=== PATIENT | female | born 1955 | race Caucasian/White ===

== ENCOUNTER 2018-03-12 11:38 | Observation (INO) ==
--- NOTE | 2018-03-12 12:59 | Emergency Department Note ---
Disposition Clinical Impression: Palpitations Disposition: Admitted As Inpatient Condition: Fair Referrals: Ivanna Brooke DO [Primary Care Provider] - Forms: ED Satisfaction Letter Time of Disposition: 14:27 Arrhythmia/Palpitations HPI - General Chief Complaint: ED Arrhythmia/Palpitations Stated Complaint: Heart palpitations; SOB; diarrhea Time Seen by Provider: 03/12/18 12:14 Source: patient Limitations: no limitations Nursing Notes Reviewed: Yes Vital Signs Reviewed: Yes - History of Present Illness HPI Narrative: Patient is a 62-year-old female who presents to [facility] ED with a chief complaint of heart palpitations. States her heart has been feeling like it is flopping back and forth intermittently over the last 5 days. States she has been getting short of breath as well that is the same at rest is when it is with exertion. Denies any nausea, vomiting. Denies chest pain, abdominal pain, problems with urination or bowel movements. Past medical history significant for hyperlipidemia that is controlled with medication. No prior heart history. Pt Subjective Complaint: palpitations Onset (ago): day(s) (5) Duration: intermittent Severity: moderate Associated symptoms: Reports: shortness of breath. Denies: chest pain, nausea, vomiting, diaphoresis, cough - Related Data Home Medications Medication Instructions Recorded Confirmed Aspirin 81 mg PO DAILY 08/23/17 08/23/17 Atorvastatin [Lipitor] 10 mg PO HS 08/23/17 08/23/17 Calcium Carbonate [Calcium] 600 mg PO DAILY 08/23/17 08/23/17 Cholecalciferol (Vitamin D3) 1,000 unit PO DAILY 08/23/17 08/23/17 [Vitamin D] Omeprazole [Omeprazole] 20 mg PO DAILY 08/23/17 08/23/17 Allergies Allergy/AdvReac Type Severity Reaction Status Date / Time No Known Allergies Allergy Verified 12/25/17 19:32 All systems ED: reviewed and negative except as stated. Past Medical History - Past Medical History Attestation: Yes The following information was validated with the patient. Source: patient Medical history: Reports: GERD, hyperlipidemia Surgical history: Reports: cholecystectomy Psychiatric history: Reports: no psych history - Social History Smoking Status: Never smoker Smokeless Tobacco Status: No Alcohol use: Reports: none Drug use: Reports: none Physical Exam - General Limitations: no limitations General appearance: alert - Head Head exam: atraumatic, normocephalic, normal inspection - Eye Eye exam: Present: EOMI - ENT ENT exam: normal exam, normal oropharynx, mucous membranes moist - Neck Neck exam: Present: normal inspection, full ROM, trachea midline - Chest Chest inspection: Present: normal inspection, symmetric chest wall rise - Respiratory Respiratory exam: Present: normal lung sounds bilaterally - Cardiovascular Cardiovascular exam: Present: regular rate, normal rhythm, normal heart sounds - Abdominal Exam Abdominal exam: Present: soft, Non-Tender. Absent: tenderness, distention, guarding, rebound, rigidity - Extremities Exam Extremities exam: Present: normal inspection, full ROM. Absent: tenderness, pedal edema - Neurological Exam Neurological exam: Present: alert, oriented X3 - Psychiatric Psychiatric exam: Present: normal affect, normal mood - Skin Skin exam: Present: warm, dry, intact, normal color Course Course Narrative: Patient seen and examined. Heart palpitations over the last 5 days along with some shortness of breath. My attending physician was handed the EKG at 12:48 PM. The EKG was done at 1153. Shows normal sinus rhythm with a rate of 73 bpm. EKG shows signs of mild ST elevation in leads 1, aVL as well as ST depressions in leads V4 through V6. This is changed from prior EKG done 2015. These findings were discussed with skin care consultant Dr. Briones and he has been faxed the EKG report. STEMI alert was called based on this. - Reevaluation(s) Reevaluation #1: Due to the difference in the appearance of leads 1, aVL, aVR, I had suspicion that possible lead placement could be causing this. I requested for the leads to be checked and they were. I asked for repeat EKG which showed the appearance of worsening ST elevation in leads 1 and aVL. However then I noted on the repeat EKG at 1317 that at the top, there was mention of right and left arm electric reversal. I went back and checked on the patient again and the tach and checked the arm leads for me and did realize that they were reversed. Then they repeat EKG done at 1326 showed no signs of ST elevation. She does have ST depression noted in leads V4 through V6 as well as mild elevation in aVR. However this is unchanged from her prior EKG that was done in 12/25/2016. I called the roll clamp operator Dr. Briones back to inform him of what happened. The STEMI alert was canceled. I then went back into the room and had an extensive conversation with the patient and her family members about what had happened. My attending physician as well as the nurse human relations manager also went into discuss with them. We will await rest of lab work. Time: 13:46 Reevaluation #2: Rest of labwork unremarkable. We will admit for observation for her palpitations as well as monitoring since she received anticoagulant medication. I discussed with the hospitalist who has accepted patient for admission. Time: 14:27 Vital Signs Temperature 98.0 F 03/12/18 11:41 Pulse Rate 84 03/12/18 11:41 Respiratory Rate 16 03/12/18 11:41 Blood Pressure 171/76 03/12/18 11:41 O2 Sat by Pulse Oximetry 97 03/12/18 11:41 Temperature 98.0 F 03/12/18 11:41 Pulse Rate 111 03/12/18 13:00 Respiratory Rate 16 03/12/18 13:00 Blood Pressure 143/71 03/12/18 13:00 O2 Sat by Pulse Oximetry 97 03/12/18 13:00 Oxygen Delivery Oxygen Delivery Room Air Arrhythmia/Palpitations - Medical Records Medical records reviewed: Yes I reviewed the patient's medical records. - Lab Data Lab results reviewed: Yes I reviewed the patient's lab results. Result diagrams: 03/12/18 12:30 Lab Results 03/12/18 Range/Units 12:30 WBC 5.2 (4.3-11.1) K/mcL RBC 4.76 (3.82-4.97) M/mcL Hgb 13.7 (11.5-15.4) g/dL Hct 41.5 (35.3-44.9) % MCV 87.2 (83.0-100.0) fL MCH 28.8 (28.0-33.3) pg MCHC 33.0 (31.6-35.5) g/dL RDW 13.3 (11.5-14.5) % Plt Count 228 (140-400) K/mcL MPV 11.5 (9.4-12.4) fL Immature Gran % 0.2 (0-4) % Seg Neutrophils % 63.8 % Lymphocytes % 27.9 % Monocytes % 7.5 % Eosinophils % 0.2 % Basophils % 0.4 % Neutrophils # 3.3 (1.6-8.9) K/mcL Lymphocytes # 1.5 (0.6-4.6) K/mcL Monocytes # 0.4 (0.0-1.3) K/mcL Eosinophils # 0.0 (0.0-0.6) K/mcL Basophils # 0.0 (0.0-0.2) K/mcL - Radiology Data Radiology results reviewed: Yes I reviewed the patient's radiology results. Chest X-Ray 03/12/18 12:15 IMPRESSION: Mild cardiomegaly. No acute cardiopulmonary process. D/ / 03/12/2018 13:27:46 Sagar Arnett MD / earnold Interpreting Provider: Sagar Arnett MD - EKG Data EKG attestation: Yes I reviewed and interpreted this EKG. EKG results narrative: EKG done at 1153 shows normal sinus rhythm with a rate of [address] elevation noted in leads [address] Mild [address] depression noted in leads V4 through V6. EKG done at 1317 shows normal sinus rhythm with a rate of [address] elevation worsening noted in leads 1 and aVL as well as continued ST depression in leads V4 through V6. Right and left arm electrode reversal was noted in the interpretation. EKG done at 1826 shows normal sinus rhythm with a rate of [address] elevation noted in lead aVR. ST depression noted in leads 1, aVL, V4 through V6. Appears unchanged from prior EKG done 12/25/2017.
[2018-03-12 13:06] LABS: Basophils % 0.4 %; Eosinophils % 0.2 %; Hematocrit 41.5 % (35.3-44.9); Hemoglobin 13.7 g/dL (11.5-15.4); Immature Granulocytes % 0.2 % (0-4); Lymphocytes # 1.5 K/mcL (0.6-4.6); Lymphocytes % 27.9 %; Mean Corpuscular Hemoglobin 28.8 pg (28.0-33.3); Mean Corpuscular Volume 87.2 fL (83.0-100.0); Mean Platelet Volume 11.5 fL (9.4-12.4); Monocytes # 0.4 K/mcL (0.0-1.3); Monocytes % 7.5 %; Neutrophils # 3.3 K/mcL (1.6-8.9); Platelet Count 228 K/mcL (140-400); Red Blood Count 4.76 M/mcL (3.82-4.97); Red Cell Distribution Width 13.3 % (11.5-14.5); Segmented Neutrophils % 63.8 %
--- NOTE | 2018-03-12 13:06 | Emergency Department Note ---
Disposition Clinical Impression: Palpitations, ST elevation Disposition: Admitted As Inpatient Condition: Fair Referrals: Ivanna Brooke DO [Primary Care Provider] - Forms: ED Satisfaction Letter General Adult HPI - General Chief complaint: ED Arrhythmia/Palpitations Stated complaint: Heart palpitations; SOB; diarrhea Time Seen by Provider: 03/12/18 12:14 Source: patient Limitations: no limitations - History of Present Illness Pain Scale: 0 - Related Data Home Medications Medication Instructions Recorded Confirmed Aspirin 81 mg PO DAILY 08/23/17 08/23/17 Atorvastatin [Lipitor] 10 mg PO HS 08/23/17 08/23/17 Calcium Carbonate [Calcium] 600 mg PO DAILY 08/23/17 08/23/17 Cholecalciferol (Vitamin D3) 1,000 unit PO DAILY 08/23/17 08/23/17 [Vitamin D] Omeprazole [Omeprazole] 20 mg PO DAILY 08/23/17 08/23/17 Allergies Allergy/AdvReac Type Severity Reaction Status Date / Time No Known Allergies Allergy Verified 12/25/17 19:32 Past Medical History - Past Medical History Medical history: Reports: GERD Surgical history: Reports: cholecystectomy Psychiatric history: Reports: no psych history - Social History Smoking Status: Never smoker Smokeless Tobacco Status: No Alcohol use: Reports: none Drug use: Reports: none Physical Exam - General Limitations: no limitations General appearance: alert Course - Reevaluation(s) Reevaluation #1: Dr james called 1pm spoke to at 1:08. ekg discussed cp free still he wants STEMI alert called we have done so Reevaluation #2: Pt still CP free at this time Dr Steele went and checked on pt again. she remains stable Vital Signs Temperature 98.0 F 03/12/18 11:41 Pulse Rate 84 03/12/18 11:41 Respiratory Rate 16 03/12/18 11:41 Blood Pressure 171/76 03/12/18 11:41 O2 Sat by Pulse Oximetry 97 03/12/18 11:41 Temperature 98.0 F 03/12/18 11:41 Pulse Rate 81 03/12/18 12:27 Respiratory Rate 18 03/12/18 12:27 Blood Pressure 136/64 03/12/18 12:27 O2 Sat by Pulse Oximetry 100 03/12/18 12:28 Oxygen Delivery Oxygen Delivery Room Air Critical Care Time Critical Care Time: Yes Total Critical Care Time: 30 Attestation: CC time spent in management of ekg abnormalities and cards consultation with possible STEMI Attestation Statement - Attestation Attestation: I examined this patient and my medical decision-making was reviewed with the Resident Physician. I agree with the documented findings, disposition and treatment plan as described except to the extent set forth below. 62-year-old female in presented to the ER for palpitations. Onset 5 days ago. Intermittent. She denies any chest pain. Said some shortness of breath. She denies any neck pain and arm pain. No back pain. No history of coronary disease. No smoking history. History of hyperlipidemia. Patient's EKG was initially concerning with some elevation in 1 and aVL concerning for a high lateral OK. Unfortunately, EKG was not given to me until 12:48pm and it was done approx 1153am. I went to room right away. she is denying any active chest pain and denies cp at all over last 5 days. just admits to palpitations. we have paged Interventional right away after I saw the ekg. dr james would like stemi alert called. will arrange for rn labor delivery now
[2018-03-12] MEDS ORDERED: Aspirin 81 MG TAB.CHEW PO ONE (13:14)
[2018-03-12] MEDS ORDERED: *HR* Heparin 5,000 UNIT/ML VIAL IVP PRN ×2 (13:14)
[2018-03-12] MEDS ORDERED: *HR* Heparin 5,000 UNIT/ML VIAL IVP ONE (13:14)
[2018-03-12] MEDS ORDERED: *HR* Ticagrelor 90 MG TABLET PO ONE (13:14)
[2018-03-12] MEDS ORDERED: Heparin 25,000 UNIT/500 ML D5W 25,000 UNIT/500 ML BAG IVC SCH (13:15)
[2018-03-12] MEDS ORDERED: Nitroglycerin 1,000 MCG/10 ML VIAL IV ONE (13:18)
[2018-03-12] MEDS ORDERED: 0.9 % Sodium Chloride 1,000 ML ONE (13:18)
[2018-03-12] MEDS ORDERED: *HR* Heparin 10,000 UNIT/10 ML VIAL ONE (13:18)
[2018-03-12] MEDS ORDERED: Tirofiban 12.5 MG/250ML 12.5 MG/250 ML BAG ONE (13:18)
[2018-03-12] MEDS ORDERED: Heparin 1,000 UNITS/500 mL 500 ML ONE (13:18)
[2018-03-12] MEDS ORDERED: ISOVUE-370 200 ML INFUS..BTL IV ONE (13:18)
[2018-03-12 13:25] LABS: Troponin I < 0.03 ng/mL (< 0.04)
[2018-03-12 13:34] LABS: Prothrombin Time 10.8 Seconds (9.4-12.1)
[2018-03-12 13:36] LABS: Activated Partial Thrombo Time 30.2 Seconds (26.0-36.0)
[2018-03-12 13:40] LABS: Thyroid Stimulating Hormone 1.297 mcIU/mL (0.340-5.600)
[2018-03-12 13:56] LABS: BUN/Creatinine Ratio 24 (6-26); Blood Urea Nitrogen 17 mg/dL (8-23); Calcium 9.8 mg/dL (8.6-10.3); Carbon Dioxide 23 mEq/L (23-29); Chloride 106 mEq/L (98-107); Glucose 106 mg/dL (70-105); Osmolality,Calculated 290 (280-300); Potassium 3.5 mEq/L (3.5-5.1); Sodium 139 mEq/L (136-145); eGFR For Non-African Americans > 60 (> 60)
--- NOTE | 2018-03-12 17:02 | Internal Med History&Physical ---
Date of Encounter: 03/12/18 Time of Encounter: 16:57 Internal Medicine - H&P: HPI Chief complaint: "Heart flutter" Admitted From: Home Plans for Post Hospital Care: Home History of present illness: Ms. Kirkland is a 62 year old female with history of [id number] pt but not documented by EKG). Denies hx of CAD, [place], HTN, diabetes Pt's daughter at bedside. Pt denies chest pain. She denies hx of anxiety or pain disorder. Pt states symptoms started about 5 days ago. Daughter states pt has been complaining of "heart fluttering" for years. Pt quit smoking about 20 years ago. Pt states she had been advised multiple times in the past to sop drinking caffeine. CODE STATUS FULL. Past Med Surg Social Fam HX - Past Medical History Medical history: GERD, hyperlipidemia Psychiatric history: no psych history - Past Surgical History Surgical History: cholecystectomy Additional surgical history: colonoscopy - Social History Smoking Status: Never smoker Smokeless Tobacco Status: No Alcohol use: none Drug use: none Internal Medicine - H&P: Meds Aspirin 81 mg PO DAILY 08/23/17 [History] Atorvastatin [Lipitor] 10 mg PO HS 08/23/17 [History] Calcium Carbonate [Calcium] 1,200 mg PO DAILY 08/23/17 [History] Cholecalciferol (Vitamin D3) [Vitamin D] 1,000 unit PO DAILY 08/23/17 [History] Omeprazole [Omeprazole] 20 mg PO DAILY 08/23/17 [History] 3 Allergy/AdvReac Type Severity Reaction Status Date / Time No Known Allergies Allergy Verified 12/25/17 19:32 All Systems PM: A 10-system review of systems was performed and is negative for pertinent findings except as documented above in the HPI. - Constitutional Vitals: Temp Pulse Resp BP Pulse Ox 98.3 F 68 16 138/75 98 03/12/18 15:54 03/12/18 15:54 03/12/18 15:54 03/12/18 15:54 03/12/18 15:54 General appearance: Present: A&O X 3, no acute distress Exam: . - Head Head exam: Present: atraumatic, normocephalic - Eye Eye exam: Present: PERRL, conjuntiva pink, sclera anicteric Pupils: Present: PERRL - Neck Neck exam general surgery: Present: supple, trachea midline. Absent: lymphadenopathy - Respiratory Respiratory exam: Present: CTAB. Absent: accessory muscle use, rales, rhonchi, wheezes - Cardiovascular Cardiovascular exam: Present: RRR, +S1, +S2. Absent: diastolic murmur, gallop, rubs, systolic murmur - GI/Abdominal GI/Abdominal exam: Present: normal bowel sounds, soft, no peritoneal signs. Absent: distended, tenderness - Extremities Exam Extremities exam: Present: warm, radial pulses palpable and symmetrical. Absent : calf tenderness, cyanotic, pedal edema - Neurological Exam Neurological exam: Present: CN II-XII intact, oriented X3, no focal deficits. Absent: pronater drift, facial droop, speech deficit - Skin Skin exam: Present: dry, intact Internal Med - H&P Results - Labs CBC & Chem 7: 03/12/18 12:30 03/12/18 12:30 - Assessment and plan (1) Palpitations Current Visit: Yes Status: Acute Assessment and plan: Troponin <0.03. Pt denies CP. Will monitor on telemetry overnight. TSH 1.297. CBC and BMP reviewed and wnl except for glucose 106. Out pt Echo and stress test if indicated. STEMI alert cancelled in ED. Pt's leads where not on correctly. (2) Hyperlipidemia Current Visit: Yes Status: Acute Assessment and plan: Resume home statin Qualifiers: Qualified Code(s): E78.5 - Hyperlipidemia, unspecified (3) Former smoker Current Visit: Yes Status: Acute - Time Spent With Patient Total time spent is greater than 50% in coordination of care (as documented) at patient's floor/unit and/or counseling patient: 25 - 35 minutes
[2018-03-12] MEDS ORDERED: Naloxone 0.4 MG/ML INJ IVP PRN (17:31)
[2018-03-12] MEDS ORDERED: Nitroglycerin 0.4 MG TAB.SUBL SL PRN (17:33)
[2018-03-13] MEDS: Aspirin 81 MG TAB.CHEW PO SCH (10:22)
[2018-03-13] MEDS: Cholecalciferol (D-3) 1,000 UNIT TABLET PO SCH (10:22)
--- NOTE | 2018-03-13 13:52 | Internal Med Progress Note ---
Hospitalist Progress Note - Encounter Date of Encounter: 03/13/18 Time of Encounter: 10:30 - Subjective Interval History: Patient is a 62-year-old female who was admitted from the emergency room with new onset of palpitations. She denied any history of heart disease excessive use of caffeine added stress, or any known etiology for the arrhythmia. Today she denies any denies any chest pain shortness of breath any dizziness blurred vision and/or any palpitations - Exam Vitals: Temp Pulse Resp BP Pulse Ox 98.1 F 68 16 146/79 97 03/13/18 11:13 03/13/18 11:13 03/13/18 11:13 03/13/18 11:13 03/13/18 11:13 Exam: Stable, remains on telemetry. We will continue to monitor during her stay - Assessment and Plan (1) ST elevation Current Visit: Yes Status: Acute Assessment and Plan: View of EKGs showed that she had in the emergency room 2 abnormal EKGs with questionable nonstop me ST elevation on further review it appears that the first 2-3 EKGs that were performed on this patient for abnormal due to having transposition of the leads on the arms. that was corrected the following EKG was negative for any ST elevation in NSTIMI alert was canceled. She did have on the final EKG ST depression in leads 4 through 6 and she was ultimately admitted . Review of records shows her home medications were positive for 81 mg ASA, atorvastatin 10 mg at bedtime, some calcium carbonate 600 mg daily, and vitamin D 3000 units daily along with some omeprazole 20 mg daily. Troponins have been negative 3 Will Obtain an echo and a stress test while she is hospitalized. (2) Palpitations Current Visit: Yes Status: Acute Assessment and Plan: Patient denies chest pain shortness of breath or palpitations today pulse is normal sinus rhythm at 60 blood pressure mildly elevated at 146/79. Will order STress test, and Echo. If abnormal will consult cardiology (3) Hyperlipidemia Current Visit: Yes Status: Chronic Assessment and Plan: We will continue with her Lipitor daily, and obtain fasting lipid panel in the a.m. DVT Prophylaxis: We will continue with DVT prophylaxis per protocol - Time Spent with Patient Total time spent is greater than 50% in coordination of care (as documented) at patient's floor/unit and/or counseling patient: Internal Medicine: Result - Labs CBC & Chem 7: 03/12/18 12:30 03/12/18 12:30 Labs: Cardiac Enzymes 03/12/18 03/13/18 03/13/18 Range/Units 18:15 00:16 06:21 Troponin I < 0.03 < 0.03 < 0.03 (< 0.04) ng/mL - ABG Interpretation ABG results: PT/INR, D-dimer PT 10.8 Seconds (9.4-12.1) 03/12/18 12:30 Consult Discharge Plan - Plan Referrals: Ivanna Brooke DO [Primary Care Provider] - 03/21/18 9:00 am (3) Hyperlipidemia Qualifiers: Hyperlipidemia type: mixed hyperlipidemia Qualified Code(s): E78.2 - Mixed hyperlipidemia
[2018-03-13 14:50] LABS: Basophils % 0.5 %; Eosinophils # 0.1 K/mcL (0.0-0.6); Eosinophils % 0.8 %; Hematocrit 44.5 % (35.3-44.9); Hemoglobin 14.6 g/dL (11.5-15.4); Immature Granulocytes % 0.3 % (0-4); Lymphocytes % 32.4 %; Mean Corpuscular HGB Conc 32.8 g/dL (31.6-35.5); Mean Corpuscular Hemoglobin 29.3 pg (28.0-33.3); Mean Corpuscular Volume 89.4 fL (83.0-100.0); Mean Platelet Volume 11.4 fL (9.4-12.4); Monocytes # 0.5 K/mcL (0.0-1.3); Monocytes % 8.2 %; Neutrophils # 3.6 K/mcL (1.6-8.9); Platelet Count 247 K/mcL (140-400); Red Blood Count 4.98 M/mcL (3.82-4.97); Red Cell Distribution Width 13.5 % (11.5-14.5); Segmented Neutrophils % 57.8 %
[2018-03-13 15:01] LABS: Alanine Aminotransferase 26 Units/L (7-52); Albumin 4.4 g/dL (3.5-5.7); Albumin/Globulin Ratio 1.5 (1.1-2.2); Alkaline Phosphatase 87 Units/L (34-104); Aspartate Amino Transferase 20 Units/L (13-39); BUN/Creatinine Ratio 22 (6-26); Blood Urea Nitrogen 18 mg/dL (8-23); Carbon Dioxide 23 mEq/L (23-29); Chloride 110 mEq/L (98-107); Glucose 122 mg/dL (70-105); Osmolality,Calculated 293 (280-300); Potassium 3.5 mEq/L (3.5-5.1); Sodium 140 mEq/L (136-145); Total Protein 7.4 g/dL (6.4-8.9); eGFR For Non-African Americans > 60 (> 60)
[2018-03-13 15:17] LABS: Thyroid Stimulating Hormone 1.279 mcIU/mL (0.340-5.600)
[2018-03-13 15:19] LABS: Triiodothyronine (T3) Free 3.74 pg/mL (2.50-3.90)
[2018-03-14] MEDS ORDERED: Regadenoson 0.4 MG/5 ML SYRINGE IVP ONE (05:57)
[2018-03-14 06:06] LABS: Chol/HDL Ratio 3.1 (0-4.9)
[2018-03-14] MEDS: Aspirin 81 MG TAB.CHEW PO SCH (08:43)
[2018-03-14] MEDS: Cholecalciferol (D-3) 1,000 UNIT TABLET PO SCH (08:44)
[2018-03-14 09:37] VITALS: BP 125/76
--- NOTE | 2018-03-14 10:34 | Discharge Summary ---
- NOTES TO OUTPATIENT PROVIDER Notes to Outpatient Provider: Follow up with PCP , possible Holter monitoring device placement if palpitations continue. Orders not resulted at time of discharge: Pending orders 03/13/18 06:00 ECG 12 lead ECG [ECG] AM 0600 03/13/18 14:01 NM chevy perf SPECT multi [NM] Routine Date of Encounter: 03/14/18 Time of Encounter: 10:28 - Discharge Diagnosis (1) Palpitations Priority: Primary Status: Acute (2) ST elevation Priority: Primary Status: Resolved (3) Hyperlipidemia Priority: Secondary Status: Chronic Qualifiers: Hyperlipidemia type: mixed hyperlipidemia Qualified Code(s): E78.2 - Mixed hyperlipidemia Hospital course: Ms. Kirkland is a 62 year old female who was admitted to observation following history of palpitations. There are no sick EKG done in the ER with plate placement in the arms showed ST elevation, this promptly resolved with proper placement of the leads. The patient denied chest pain no history of coronary artery disease or vascular disease no diabetes or hypertension. She denied history of anxiety or pain disorder. Telemetry throughout admission was unremarkable. TSH was within normal limit, echocardiogram was normal without any valvular disorders, EF preserved. Stress test done today showed a "exercise capacity with gaited EF greater than 70%, perfusion imaging was negative for ischemia or infarct. Patient is seen and evaluated at the bedside with family, no complaints, no chest pain, no palpitations no shortness of breath. She is clinically and hemodynamically stable to be discharged home with appropriate follow-up with primary care physician. Plan of care discussed with the patient who verbalized understanding. Discharge discussed with: patient, family, nurse - Time Spent with Patient Total time spent providing and/or coordinating discharge services: Less than 30 minutes - Discharge Medications Home Medications: Aspirin 81 mg PO DAILY 08/23/17 [History] Atorvastatin [Lipitor] 10 mg PO HS 08/23/17 [History] Calcium Carbonate [Calcium] 1,200 mg PO DAILY 08/23/17 [History] Cholecalciferol (Vitamin D3) [Vitamin D] 1,000 unit PO DAILY 08/23/17 [History] Omeprazole [Omeprazole] 20 mg PO DAILY 08/23/17 [History] Allergies/Adverse Reactions: 3 Allergy/AdvReac Type Severity Reaction Status Date / Time No Known Allergies Allergy Verified 12/25/17 19:32 Date of admission: 03/12/18 14:52 Primary care physician: Ivanna Brooke DO Discharging clinician: Garcia Estrada Anticipated date of discharge: 03/14/18 - Constitutional Vitals: Temp Pulse Resp BP Pulse Ox 97.7 F 63 18 125/76 98 03/14/18 09:36 03/14/18 09:36 03/14/18 09:36 03/14/18 09:36 03/14/18 09:36 General appearance: Present: A&O X 3, no acute distress Exam: see below - Head Head exam: Present: atraumatic, normocephalic - Eye Eye exam: Present: PERRL, conjuntiva pink, sclera anicteric Pupils: Present: PERRL - Neck Neck exam general surgery: Present: supple, trachea midline. Absent: lymphadenopathy - Respiratory Respiratory exam: Present: CTAB. Absent: accessory muscle use, rales, rhonchi, wheezes - Cardiovascular Cardiovascular exam: Present: RRR, +S1, +S2. Absent: diastolic murmur, gallop, rubs, systolic murmur - GI/Abdominal GI/Abdominal exam: Present: normal bowel sounds, soft, no peritoneal signs. Absent: distended, tenderness - Extremities Exam Extremities exam: Present: warm, radial pulses palpable and symmetrical. Absent : calf tenderness, cyanotic, pedal edema - Neurological Exam Neurological exam: Present: CN II-XII intact, oriented X3, no focal deficits. Absent: pronater drift, facial droop, speech deficit - Skin Skin exam: Present: dry, intact - Patient Status Disposition: Home, Self-Care Condition: Good Functional capacity at discharge: independent ambulation Overall status at discharge: patient is back to baseline - Discharge Instructions Follow Up With: Ivanna Brooke DO [Primary Care Provider] - 03/21/18 9:00 am - Diet and Activity Activity: resume usual activities as tolerated Diet: low fat, low cholesterol, low salt diet
--- NOTE | 2018-03-15 16:57 | Electrocardiograph Report ---
[facility] Test Date: 2018-03-12 Pat Name: Sadaf Kirkland Department: [id number] Room: 3B39 Gender: F Bible Reader: : 1955 Requested By: Dell Riley Order Number: [id number] Reading MD: Rian Fernandez Measurements Intervals [place] Rate: 73 P: 138 [place]: 131 QRS: 179 QRSD: 88 T: 151 QT: 401 QTc: 442 Interpretive Statements Right and left arm electrode reversal, interpretation assumes no reversal Normal sinus rhythm Probable lateral infarct, age indeterminate Electronically Signed On 03-15-2018 16:55:59 EDT by Rian Fernandez
--- NOTE | 2018-03-15 16:58 | Electrocardiograph Report ---
[facility] Test Date: 2018-03-12 Pat Name: Sadaf Kirkland Department: [id number] Room: 3B39 Gender: F Nurses Director: : 1955 Requested By: Jaki Steele Order Number: [id number] Reading MD: Rian Fernandez Measurements Intervals [place] Rate: 94 P: 54 GA: 140 QRS: 7 QRSD: 86 T: 60 QT: 370 QTc: 463 Interpretive Statements Sinus rhythm Borderline ST depression, anterolateral leads Electronically Signed On 03-15-2018 16:56:43 EDT by Rian Fernandez
== END 2018-03-14 12:20 | disposition home or self-care (01) ==
LOC: 3BNU 11:38 → EMEROOARM 11:38 → SUATTDRO 14:52 → 3BNU 15:40
PROVIDERS: ADMIT Student in an Organized Health Care Education/Training Program; ATTEND Internal Medicine

== ENCOUNTER 2021-02-24 12:15 | Inpatient (IN) ==
[2021-02-24] MEDS ORDERED: Aspirin 81 MG TAB.CHEW PO ONE (12:47)
[2021-02-24 13:23] LABS: Basophils # 0.1 K/mcL (0.0-0.2); Basophils % 0.9 %; Eosinophils % 0.7 %; Hematocrit 41.8 % (35.3-44.9); Hemoglobin 13.7 g/dL (11.5-15.4); Immature Granulocytes % 0.4 % (0-4); Lymphocytes # 1.7 K/mcL (0.6-4.6); Lymphocytes % 29.3 %; Mean Corpuscular HGB Conc 32.8 g/dL (31.6-35.5); Mean Corpuscular Hemoglobin 29.7 pg (28.0-33.3); Mean Corpuscular Volume 90.7 fL (83.0-100.0); Monocytes # 0.5 K/mcL (0.0-1.3); Monocytes % 9.5 %; Neutrophils # 3.4 K/mcL (1.6-8.9); Platelet Count 262 K/mcL (140-400); Red Blood Count 4.61 M/mcL (3.82-4.97); Red Cell Distribution Width 13.2 % (11.5-14.5); Segmented Neutrophils % 59.2 %; White Blood Count 5.7 K/mcL (4.3-11.1)
[2021-02-24 13:43] LABS: BUN/Creatinine Ratio 18 (6-26); Blood Urea Nitrogen 12 mg/dL (8-23); Calcium 9.7 mg/dL (8.6-10.3); Carbon Dioxide 24 mEq/L (23-29); Chloride 108 mEq/L (98-107); Glucose 108 mg/dL (70-105); Osmolality,Calculated 288 (280-300); Potassium 3.8 mEq/L (3.5-5.1); Sodium 139 mEq/L (136-145); eGFR For African Americans > 60 (> 60); eGFR For Non-African Americans > 60 (> 60)
[2021-02-24 13:44] LABS: Troponin I < 0.03 ng/mL (< 0.04)
[2021-02-24] MEDS ORDERED: Naloxone 0.4 MG/ML INJ IVP PRN (13:50)
[2021-02-24] MEDS ORDERED: Ondansetron 4 MG/2 ML VIAL IVP PRN (13:50)
[2021-02-24] MEDS ORDERED: Perflutren Lipid Microsphere 1.3 ML in 0.9 % Sodium Chloride 8.7 ML IVP PRN (13:52)
[2021-02-25 01:10] LABS: Basophils % 0.6 %; Eosinophils # 0.1 K/mcL (0.0-0.6); Eosinophils % 0.8 %; Hematocrit 39.9 % (35.3-44.9); Hemoglobin 13.1 g/dL (11.5-15.4); Immature Granulocytes % 0.3 % (0-4); Lymphocytes # 2.8 K/mcL (0.6-4.6); Lymphocytes % 39.7 %; Mean Corpuscular HGB Conc 32.8 g/dL (31.6-35.5); Mean Corpuscular Hemoglobin 29.4 pg (28.0-33.3); Mean Corpuscular Volume 89.7 fL (83.0-100.0); Mean Platelet Volume 10.9 fL (9.4-12.4); Monocytes # 0.6 K/mcL (0.0-1.3); Monocytes % 8.4 %; Neutrophils # 3.6 K/mcL (1.6-8.9); Platelet Count 271 K/mcL (140-400); Red Blood Count 4.45 M/mcL (3.82-4.97); Red Cell Distribution Width 13.2 % (11.5-14.5); Segmented Neutrophils % 50.2 %; White Blood Count 7.1 K/mcL (4.3-11.1)
[2021-02-25 01:40] LABS: BUN/Creatinine Ratio 23 (6-26); Blood Urea Nitrogen 15 mg/dL (8-23); Calcium 9.7 mg/dL (8.6-10.3); Carbon Dioxide 23 mEq/L (23-29); Chloride 108 mEq/L (98-107); Glucose 90 mg/dL (70-105); Magnesium 1.8 mg/dL (1.6-2.6); Osmolality,Calculated 288 (280-300); Phosphorous 3.7 mg/dL (2.7-4.5); Potassium 3.7 mEq/L (3.5-5.1); Sodium 139 mEq/L (136-145); eGFR For African Americans > 60 (> 60); eGFR For Non-African Americans > 60 (> 60)
[2021-02-25 01:48] LABS: Troponin I < 0.03 ng/mL (< 0.04)
[2021-02-25] MEDS: Aspirin 81 MG TAB.CHEW PO SCH (07:46)
[2021-02-25] MEDS ORDERED: Regadenoson 0.4 MG/5 ML SYRINGE IVP ONE (07:49)
[2021-02-25] MEDS: Famotidine 20 MG TABLET PO SCH (16:25)
[2021-02-25] MEDS: *HR* Heparin 5,000 UNIT/ML VIAL SQ SCH (16:26)
[2021-02-26 01:07] LABS: Hematocrit 42.3 % (35.3-44.9); Hemoglobin 13.8 g/dL (11.5-15.4); Mean Corpuscular HGB Conc 32.6 g/dL (31.6-35.5); Mean Corpuscular Hemoglobin 29.2 pg (28.0-33.3); Mean Corpuscular Volume 89.6 fL (83.0-100.0); Mean Platelet Volume 10.8 fL (9.4-12.4); Platelet Count 272 K/mcL (140-400); Red Blood Count 4.72 M/mcL (3.82-4.97); Red Cell Distribution Width 13.2 % (11.5-14.5); White Blood Count 8.1 K/mcL (4.3-11.1)
[2021-02-26 01:27] LABS: Chol/HDL Ratio 3.3 (0-4.9)
[2021-02-26 02:05] LABS: Estimated Average Glucose 114 mg/dl; Hemoglobin A1C 5.6 %
[2021-02-26] MEDS: Famotidine 20 MG TABLET PO SCH ×2 (02:33→14:51)
[2021-02-26] MEDS: *HR* Heparin 5,000 UNIT/ML VIAL SQ SCH ×2 (05:02→17:03)
[2021-02-26] MEDS: Aspirin 81 MG TAB.CHEW PO SCH (07:55)
[2021-02-26] MEDS ORDERED: Nitroglycerin 0.4 MG TAB.SUBL SL PRN (13:30)
[2021-02-27] MEDS: Famotidine 20 MG TABLET PO SCH ×2 (00:44→16:23)
[2021-02-27 02:23] LABS: Hematocrit 41.5 % (35.3-44.9); Hemoglobin 13.7 g/dL (11.5-15.4); Mean Corpuscular Hemoglobin 29.8 pg (28.0-33.3); Mean Corpuscular Volume 90.2 fL (83.0-100.0); Mean Platelet Volume 11.1 fL (9.4-12.4); Platelet Count 289 K/mcL (140-400); Red Cell Distribution Width 13.2 % (11.5-14.5); White Blood Count 8.7 K/mcL (4.3-11.1)
[2021-02-27] MEDS: *HR* Heparin 5,000 UNIT/ML VIAL SQ SCH ×2 (05:35→16:23)
[2021-02-27] MEDS: Aspirin 81 MG TAB.CHEW PO SCH (08:45)
[2021-02-27] MEDS ORDERED: *HR* Midazolam HCl 2 MG/2 ML VIAL ONE (15:02)
[2021-02-27] MEDS ORDERED: Nitroglycerin 1,000 MCG/5 ML VIAL IV ONE (15:03)
[2021-02-27] MEDS ORDERED: 0.9 % Sodium Chloride 1,000 ML ONE (15:03)
[2021-02-27] MEDS ORDERED: ISOVUE-370 200 ML INFUS..BTL ONE (15:03)
[2021-02-27] MEDS ORDERED: Heparin 1,000 UNITS/500 mL 500 ML ONE (15:03)
[2021-02-27] MEDS ORDERED: *HR* Heparin 10,000 UNIT/10 ML VIAL ONE (15:03)
[2021-02-27] MEDS ORDERED: *HR* FentaNYL (PF) 100 MCG/2 ML VIAL ONE (15:03)
[2021-02-28] MEDS: *HR* Heparin 5,000 UNIT/ML VIAL SQ SCH (06:23)
[2021-02-28 06:53] VITALS: BP 107/55; PULSE 96; TEMP 97.6; O2SAT 94
[2021-02-28] MEDS ORDERED: Famotidine 20 MG TABLET PO SCH (07:00)
[2021-02-28] MEDS: Famotidine 20 MG TABLET PO SCH (07:15)
[2021-02-28] MEDS: Aspirin 81 MG TAB.CHEW PO SCH (08:07)
== END 2021-02-28 11:12 | disposition home or self-care (01) | DRG 287 ==
LOC: EMEROOARM 12:15 → 3BNU 12:15 → SUATTDRO 02-25 14:10
PROVIDERS: ADMIT Student in an Organized Health Care Education/Training Program; ATTEND Nurse Practitioner